=== PATIENT | female | born 1970 | race Caucasian/White ===

== ENCOUNTER → 2016-06-02 | Outpatient (CLI) | payer OTHER ==
--- NOTE | 2016-06-02 10:27 | US ---
EXAM DESCRIPTION: MAMMO BREAST DIAGNOSTIC BILATERAL; US BREAST BILATERAL Images were reviewed with R2 computer-aided detection. CLINICAL HISTORY: Left breast tenderness with bilateral breast nodules COMPARISON: 2014. FINDINGS: Scattered glandular contour with nodularity and the increased mammographic density. Right breast 8 o'clock. Partially obscured nodule corresponds to palpable change. No mammographic abnormality is shown on the left. No architectural distortion or clustered microcalcifications. Directed ultrasound examination outer right breast demonstrates 7 o'clock palpable nodule to correspond to a 2.7 cm simple cyst. Scattered small cysts are seen throughout the outer right breast without sonographically suspicious finding. Tender region left breast 3 o'clock corresponds to a benign appearing intramammary lymph node. No sonographic abnormality. IMPRESSION: Benign exam. Palpable region corresponds to a large simple cyst in this patient with scattered fibrocystic changes. There is no mammographic or sonographic evidence for malignancy. BIRAD CATEGORY: 2 BENIGN RECOMMENDATION: FOLLOW-UP: Routine annual mammography. Mastodynia recommendations were given. Findings and recommendations were communicated to the patient by the technologist. According to the [employer], yearly mammograms are recommended starting at age 40 and continuing as long as a woman is in good health. Any breast change noted on a breast self-exam should be reported promptly to the patient's healthcare provider. Breast MRI is recommended for women with an approximately 20-25% or greater lifetime risk of breast cancer, including women with a strong family history of breast or ovarian cancer and women who have been treated for Hodgkin's disease. Electronically signed by: Re Collazo 06/02/2016 10:25
== END | disposition home or self-care (01) ==
LOC: MAMMO 08:00
DX: N63 Unspecified lump in breast (principal)

== ENCOUNTER → 2016-10-25 | Outpatient (CLI) | payer SELFPAY | END | disposition home or self-care (01) | LOC: LAB.O 11:46 | PROVIDERS: ATTEND Surgery | DX: N60.01 Solitary cyst of right breast (principal) ==

== ENCOUNTER → 2017-12-25 | Outpatient (CLI) | payer BC ==
--- NOTE | 2017-12-26 09:11 | MAM ---
EXAM DESCRIPTION: 3D Screening BILATERAL : Digital Mammography. CLINICAL HISTORY: 47 years Female SCREEN . "Lumps in both breasts." Multiple cysts. No personal history of breast cancer. Remote family history of breast cancer. Childbirth. Postmenopausal. HRT 5 or more years ago. Bilateral breast cyst aspirations. Bilateral breast reduction. Lifetime risk of developing breast cancer (Tyrer-Cuzick model) is 14.9 %. COMPARISON: 2-D digital diagnostic bilateral mammography 06/02/2016. TECHNIQUE: Bilateral CC and MLO projection full-field images, Digital tomosynthesis mammographic technique. Bilateral digital 2-D full-field MLO images. CAD not utilized. FINDINGS: The breast parenchymal density pattern is: Heterogeneously dense breast tissue, which may obscure small masses. No skin thickening or nipple retraction. Bilateral solitary microcalcifications. Bilateral axillary lymph nodes. Bilateral regions of focal asymmetry stable since the prior study. Again seen is architectural distortion related to prior bilateral breast reduction. Slightly more benign type calcifications bilaterally compared to the prior study. No new focal, stellate mass or density, focal asymmetry , and no suspicious microcalcifications bilaterally. IMPRESSION: Benign exam. BIRAD CATEGORY: 2 BENIGN FINDINGS. RECOMMENDATIONS: FOLLOW UP: Routine digital bilateral screening, one year interval from December 2017. Written communication explaining the IMPRESSION and follow-up, will be mailed to the patient and referring health care provider. According to the [employer], yearly mammograms are recommended starting at age 40 and continuing as long as a woman is in good health. Any breast change noted on a breast self-exam should be reported promptly to the patient's healthcare provider. Breast MRI is recommended for women with an approximately 20-25% or greater lifetime risk of breast cancer, including women with a strong family history of breast or ovarian cancer and women who have been treated for Hodgkin's disease. A negative mammographic report should not delay tissue diagnosis in patients with significant clinical history or physical findings. Extremely dense breast tissue limits the sensitivity of digital mammography. Electronically signed by: Prasanna Hamilton MD 12/26/2017 9:10 AM CDT
== END ==
LOC: MAMMO 10:28
PROVIDERS: ATTEND Nurse Practitioner Family
DX: Z12.31 Encounter for screening mammogram for malignant neoplasm of breast (principal)

== ENCOUNTER 2018-04-04 07:40 | Emergency (ER) | payer BC ==
[2018-04-04] MEDS ORDERED: KETOROLAC TROMETHAMINE INJ 30 MG/ML VIAL IM ONE (07:56)
[2018-04-04] MEDS ORDERED: HYDROcodone 10MG/APAP 325MG 1 EA TAB PO ONE (07:56)
--- NOTE | 2018-04-04 08:19 | RAD ---
One view abdomen. Indication: suspected r kidney stone Comparison: None. Impression: Cholecystectomy clips. Bowel gas pattern nonspecific. No abnormal calcifications. CT could better evaluate for renal stones as clinically indicated. No acute osseous abnormality. Electronically signed by: Scott Jung MD 04/04/2018 8:18 AM [employer]
--- NOTE | 2018-04-04 09:39 | CT ---
EXAM DESCRIPTION: Abdomen/Pelvis w/o Contrast: Computed Tomography. CLINICAL HISTORY: 48 years Female right flank pain 3 days COMPARISON: None. TECHNIQUE: Spiral-axial scans 2.5 x 2.5 mm intervals through the abdomen and pelvis without oral or IV contrast. Coronal and sagittal 2.0 mm reconstructions. Total Exam DLP: 996.18 mGy-cm. This exam was performed according to our departmental CT dose-optimization program which includes automated exposure control, adjustment of the mA and/or kV according to patient size and/or use of iterative reconstruction technique; to reduce radiation dose to as low as reasonably achievable (ALARA). FINDINGS: Lung bases and pleura: Minimal posterior dependent atelectasis in the lower lobes more on the left than the right. Liver, stomach, spleen, and adrenal glands: Long axis of the right hepatic lobe is 18.1 cm. Question of a slightly more dissection of the liver on the posterior right upper lobe subcapsular which is most likely fatty sparing of the right lobe. Smooth capsule with no dilated ducts or ascites. Stomach is negative. Other solid organs are unremarkable. Pancreas, Gallbladder, and Ducts: Surgical clips in the gallbladder fossa with no fluid. Common bile duct and pancreas are negative. Kidneys and Ureters: 2 mm radiodense stone in the upper collecting system of the right kidney with no hydronephrosis or perinephric edema. Left kidney is unremarkable. Bilateral ureters are normal caliber with no radiodense stones dilation or periureteral edema. Mesentery: No stranding, fascial thickening, free air or free fluid. Aorta: Unremarkable. Small Bowel: Negative. Terminal Ileum/Cecum: Unremarkable. Appendix not seen. Normal fatty density. Colon: Fecal matter from the cecum to the proximal descending colon. No complications. Pelvic Organs: No radiodense stones in the urinary bladder. Vaginal cuff negative. No fluid in the cul-de-sac. Ovaries not well seen in the adnexa. Spine and Bony Pelvis: Mild levoscoliosis lumbar spine. Bilateral hypertrophy of the superior lateral acetabular facet margins. Abdominal Wall/Back Soft Tissues: Anterior midline bulge of the abdominal wall raising the at the umbilicus but no hernia or bowel involved in the abdominal wall. IMPRESSION: 1. 2 mm nonobstructing stone in the upper collecting system of the right kidney with no hydronephrosis. Left kidney and bilateral ureters are unremarkable. No radiodense stones in the urinary bladder. 2. Mild hepatomegaly. Differences in density in the right lobe are most likely related to steatosis, mixed with normal hepatic parenchyma. Consider follow-up hepatic ultrasound on a nonemergent basis. Normal ducts. No ascites. 3. Appearance of the bilateral superior lateral acetabular margins can be associated with over coverage of the femoral heads and pincer-type femoral acetabular impingement. Correlate for hip pain. Electronically signed by: Prasanna Hamilton MD 04/04/2018 9:38 AM [facility]
[2018-04-04] MEDS ORDERED: MORPHINE SULFATE INJ 10 MG/ML VIAL IM ONE (10:11)
[2018-04-04] MEDS ORDERED: predniSONE 20 MG TAB PO ONE (10:45)
[2018-04-04] MEDS ORDERED: diazePAM 2 MG TAB PO ONE (10:45)
--- NOTE | 2018-04-04 12:47 | US ---
Procedure: US LIVER Exam Date: 04/04/2018 Ordering Provider: Darrian Soni Clinical Indication: flank pain, abnormality on ct Comparison: 04/04/2018 CT abdomen pelvis Technique: Real-time ultrasonography was obtained over the right upper quadrant and medical billing representative images were recorded. Findings: The liver is echogenic consistent with fatty infiltration. Liver is enlarged measuring up to 16.7 cm. There is a 4.0 x 3.9 x 3.1 cm avascular hypoechoic mass in the right hepatic lobe. The extrahepatic common duct measures 6 mm. No intrahepatic or extrahepatic biliary dilation. The gallbladder has been removed. No abdominal aortic aneurysm. The pancreas is unremarkable. The IVC is unremarkable. No hydronephrosis in the right kidney. No ascites in the abdomen. Impression: 1. Avascular mass in the right hepatic lobe. Further evaluation with MRI liver protocol is recommended. Electronically signed by: Hugo Harris MD 04/04/2018 12:46 PM [facility]
--- NOTE | 2018-04-04 13:07 | ED.PDOC ---
History of Present Illness - General Chief Complaint: Problem Stated Complaint: right flank pain Time Seen by Provider: 04/04/18 07:48 Source: patient Exam Limitations: no limitations - History of Present Illness Initial Comments: the patient's 48-year-old female presenting to the emergency room secondary to lower back pain primarily on the right side that started about 3 days ago. It has been fairly constant in nature with acute exacerbations. When the pain has been at its worstshe has had some nausea. No urinary symptoms. No constipation. No vomiting. She has already had both her appendix and her gallbladder out. No fever. No weight loss. She did fall about a week to 10 days ago. On exam the patient has tenderness to palpation over the paraspinal musculature adjacent to approximately L3-L5 on the right. No pain over the spinous processes and no pain on the left. Timing/Duration: unsure Severity: moderate Improving Factors: nothing Worsening Factors: movement Associated Symptoms: denies symptoms Allergies/Adverse Reactions: Allergies Butorphanol [From Stadol] Allergy (Verified 03/03/16 12:34) adhesives Adverse Reaction (Uncoded 03/03/16 12:34) Home Medications: Ambulatory Orders Duloxetine HCl [Cymbalta] 60 mg PO DAILY 10/08/14 Buspirone HCl 10 mg .ROUTE DAILY 04/04/18 Cyclobenzaprine HCl [Flexeril] 10 mg PO TID PRN #30 tab 04/04/18 Methotrexate Sodium [Methotrexate] 15 mg PO 04/04/18 predniSONE [Prednisone] 20 mg PO DAILY #5 tab 04/04/18 Review of Systems - Review of Systems Constitutional: States: no symptoms reported EENTM: States: no symptoms reported Respiratory: States: no symptoms reported Cardiology: States: no symptoms reported Gastrointestinal/Abdominal: States: nausea Genitourinary: States: no symptoms reported Musculoskeletal: States: back pain Skin: States: no symptoms reported Neurological: States: no symptoms reported Endocrine: States: no symptoms reported All other Systems: No Change from Baseline Past Medical History (General) - Patient Medical History Hx Seizures: No Hx Stroke: No Hx Asthma: No Hx of COPD: No Hx Cardiac Disorders: Yes - palpitations Hx Congestive Heart Failure: No Hx Pacemaker: No Hx Hypertension: No Hx Diabetes: No Hx Cancer: No Hx MRSA: No Surgical History: appendectomy, cholecystectomy, tonsillectomy, Hysterectomy, other - Vaccination History Hx Tetanus, Diphtheria Vaccination: Yes Hx Influenza Vaccination: No Hx Pneumococcal Vaccination: No - Social History Hx Tobacco Use: No Hx Alcohol Use: No Hx Substance Use: No Hx Physical Abuse: No Hx Emotional Abuse: No - Female History Patient : No Family Medical History - Family History Father Family History: No Known Living Status: Still Living Hx Family Diabetes: Yes Hx Family;Other: Hep C Alzheimers Mother Living Status: Still Living Hx Family Diabetes: Yes Hx Family;Other: Hep C, pancreatitis Physical Exam - Physical Exam General Appearance: Alert, Other - obviously hurting Eye Exam: bilateral normal Ears, Nose, Throat: hearing grossly normal, normal ENT inspection, normal pharynx Neck: non-tender, full range of motion, supple Respiratory: lungs clear, normal breath sounds, no respiratory distress, no accessory muscle use Cardiovascular/Chest: normal peripheral pulses, regular rate, rhythm, no edema Peripheral Pulses: radial,right: 2+, radial,left: 2+, dorsalis pedis,right: 2+, dorsalis pedis,left: 2+ Gastrointestinal/Abdominal: non tender, soft Rectal Exam: deferred Back Exam: no vertebral tenderness, muscle spasm - see history of present illness Extremity: normal range of motion, non-tender, normal inspection, no pedal edema, normal capillary refill 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, alert, normal mood/affect, oriented x 3 Skin Exam: normal color Comments: Vital Signs - 24 hr 04/04/18 04/04/18 04/04/18 07:50 08:30 09:00 Temperature 98.1 F Pulse Rate [ 88 76 79 left brachial] Respiratory 22 20 20 Rate Blood Pressure 127/75 121/74 [left brachial] O2 Sat by Pulse 98 97 97 Oximetry 04/04/18 04/04/18 04/04/18 10:00 11:00 11:30 Temperature Pulse Rate [ 78 61 63 left brachial] Respiratory 20 16 16 Rate Blood Pressure 128/78 128/76 120/53 [left brachial] O2 Sat by Pulse 96 94 L 95 Oximetry 04/04/18 12:30 Temperature Pulse Rate [ 61 left brachial] Respiratory 16 Rate Blood Pressure 105/73 [left brachial] O2 Sat by Pulse 95 Oximetry Progress - Progress Progress: 04/04/18 13:10 the patient is a 48-year-old female presenting with lower right back pain that appears to be musculoskeletal in nature. Laboratory work was reassuring. The patient does have a 4 cm liver lesion that she will need to have continued workup on as an outpatient in the form of a MRI per liver protocol. I do not believe that it is the source of her back pain today. For the back pain the patient is going to be placed on Flexeril 3 times daily as needed to help reduce muscle spasm and she will also be placed on prednisone 20 mg daily for the next 5 days. she needs to keep herself well-hydrated. Topical heat and stretching may prove beneficial. Follow-up with primary care doctor early next week to get the MRI set up. ER warnings were given. - Results/Orders Results/Orders: Laboratory Results - last 24 hr 04/04/18 04/04/18 04/04/18 07:58 08:53 08:53 WBC 6.0 RBC 4.72 Hgb 13.4 Hct 40.3 MCV 85.4 MCH 28.4 MCHC 33.2 RDW 13.8 Plt Count 300 MPV 7.9 Absolute Neuts (auto) 3.90 Absolute Lymphs (auto) 1.40 Absolute Monos (auto) 0.50 Absolute Eos (auto) 0.10 Absolute Basos (auto) 0.00 Neutrophils % 64.9 Lymphocytes % 23.6 Monocytes % 8.6 Eosinophils % 2.1 Basophils % 0.8 Sodium 141 Potassium 4.0 Chloride 107 Carbon Dioxide 26 Anion Gap 12.0 BUN 14 Creatinine 0.80 BUN/Creatinine Ratio 17.5 Random Glucose 104 Serum Osmolality 282.0 Calcium 9.3 Total Bilirubin 0.4 AST 21 ALT 19 Alkaline Phosphatase 81 Serum Total Protein 6.7 Albumin 3.7 Globulin 3.0 Albumin/Globulin Ratio 1.2 Urine Color Yellow Urine Appearance Clear Urine pH 5.5 Ur Specific [place] 1.020 Urine Protein Negative Urine Glucose (UA) Negative Urine Ketones Negative Urine Blood Negative Urine Nitrite Negative Urine Bilirubin Negative Urine Urobilinogen 0.2 Ur Leukocyte Esterase Negative Urine RBC 0 Urine WBC 1-3 Ur Epithelial Cells 5-10 Urine Bacteria Rare KUB shows no acute pathology. CT of abdomen and pelvis without contrast shows a 2 mm stone within the right kidney. No evidence of hydroureter or hydronephrosis.posterior right lobe of liver abnormality. Liver ultrasound shows a 4 cm hypoechoic liver lesion and recommends MRI. Departure - Departure Clinical Impression: Liver mass, right lobe Acute myofascial strain of lumbar region Qualifiers: Encounter type: initial encounter Qualified Code(s): S39.012A - Strain of muscle, fascia and tendon of lower back, initial encounter Disposition: Discharge to Home or Self Care Condition: Fair Departure Forms: ED Discharge - Pt. Copy, Patient Portal Self Enrollment Instructions: Low Back Pain (DC) Diet: regular diet Activity: increase activity as tolerated Referrals: Milla Mack NP [Primary Care Provider] - 1-2 Days Prescriptions: Cyclobenzaprine HCl [Flexeril] 10 mg PO TID PRN #30 tab PRN Reason: Muscle Spasms predniSONE [Prednisone] 20 mg PO DAILY #5 tab Home Medications: Ambulatory Orders Duloxetine HCl [Cymbalta] 60 mg PO DAILY 10/08/14 Buspirone HCl 10 mg .ROUTE DAILY 04/04/18 Cyclobenzaprine HCl [Flexeril] 10 mg PO TID PRN #30 tab 04/04/18 Methotrexate Sodium [Methotrexate] 15 mg PO 04/04/18 predniSONE [Prednisone] 20 mg PO DAILY #5 tab 04/04/18 Additional Instructions: the patient is a 48-year-old female presenting with lower right back pain that appears to be musculoskeletal in nature. Laboratory work was reassuring. The patient does have a 4 cm liver lesion that she will need to have continued workup on as an outpatient in the form of a MRI per liver protocol. I do not believe that it is the source of her back pain today. For the back pain the patient is going to be placed on Flexeril 3 times daily as needed to help reduce muscle spasm and she will also be placed on prednisone 20 mg daily for the next 5 days. she needs to keep herself well-hydrated. Topical heat and stretching may prove beneficial. Follow-up with primary care doctor early next week to get the MRI set up. ER warnings were given.
[2018-04-04 13:31] VITALS: BP 116/76; TEMP 97.7; O2SAT 96
== END 2018-04-04 13:32 | disposition home or self-care (01) ==
LOC: ER 07:40
DX: S39.012A Strain of muscle, fascia and tendon of lower back, initial encounter (principal); R16.0 Hepatomegaly, not elsewhere classified; R11.0 Nausea; N20.0 Calculus of kidney; Z90.49 Acquired absence of other specified parts of digestive tract; Z79.899 Other long term (current) drug therapy; Z88.8 Allergy status to other drugs, medicaments and biological substances; W19.XXXA Unspecified fall, initial encounter; Y92.9 Unspecified place or not applicable
CPT/HCPCS: 36415; 74018; 74176; 76705; 80053; 81001; 85025; J1885; J2270; J7512

== ENCOUNTER 2018-05-04 08:17 | Observation (INO) | payer BC ==
[2018-05-04] MEDS ORDERED: MORPHINE SULFATE INJ 10 MG/ML VIAL IV ONE ×2 (08:41→09:57)
[2018-05-04] MEDS ORDERED: ONDANSETRON INJ 4 MG/2 ML VIAL IV ONE (08:42)
--- NOTE | 2018-05-04 08:48 | ED.PDOC ---
History of Present Illness - General Chief Complaint: Abdominal Pain Stated Complaint: abdominal pain Time Seen by Provider: 05/04/18 08:39 Information Source: patient Exam Limitations: no limitations Additional Information: THIS PATIENT STARTED WITH RUQ PAIN THIS AM. SHE RATES THE PAIN 7/10 AND RADIATES TO THE BACK AND VOICES THAT IT REMINDS HER OF A GALLBLADDER ATTACK. SHE HAD HERS REMOVED MANY YEARS AGO. SHE ALSO TELLS ME THAT LAST MONTH SHE WAS HERE FOR WHAT APPEARED TO BE A RENAL COLIC BUT A CT OF THE ABDOMEN WAS NEGATIVE CALCULOUS. THERE WAS AN INCIDENTAL FINDING OF A LIVER LESION. AN MRI WAS SCHEDULED FOR THIS PAST MONDAY BUT NEEDS TO RESCHEDULE. SHE WAS TREATED A MUSCLE STRAIN AND DISCHARGED. THIS PAIN, TODAY IS DEFERENT THAN THE ONE IN MARCH. - History of Present Illness Abdominal Pain Onset Location: RUQ Pain Radiation: flank, back Quality: moderate Timing/Duration: 1-3 hours Worsening Factors: nothing Associated Symptoms: denies symptoms Review of Systems - Review of Systems Constitutional: States: no symptoms reported EENTM: States: no symptoms reported Respiratory: States: no symptoms reported Cardiology: States: no symptoms reported Gastrointestinal/Abdominal: States: abdominal pain, nausea Genitourinary: States: no symptoms reported Musculoskeletal: States: no symptoms reported Skin: States: no symptoms reported Neurological: States: no symptoms reported Endocrine: States: no symptoms reported Hematologic/Lymphatic: States: no symptoms reported Past Medical History (General) - Patient Medical History Hx Seizures: No Hx Stroke: No Hx Asthma: No Hx of COPD: No Hx Cardiac Disorders: Yes - palpitations Hx Congestive Heart Failure: No Hx Pacemaker: No Hx Hypertension: No Hx Diabetes: No Hx Cancer: No Hx MRSA: No Surgical History: appendectomy, cholecystectomy, tonsillectomy, Hysterectomy, other - Vaccination History Hx Tetanus, Diphtheria Vaccination: Yes Hx Influenza Vaccination: No Hx Pneumococcal Vaccination: No - Social History Hx Tobacco Use: No Hx Alcohol Use: No Hx Substance Use: No Hx Physical Abuse: No Hx Emotional Abuse: No - Female History Patient : No Family Medical History - Family History Father Family History: No Known Living Status: Still Living Hx Family Diabetes: Yes Hx Family;Other: Hep C Alzheimers Mother Living Status: Still Living Hx Family Diabetes: Yes Hx Family;Other: Hep C, pancreatitis Physical Exam - Physical Exam General Appearance: Alert, Other - SHE SEEMS TO BE IN MODERATE DISTRESS. Eyes, Ears, Nose, Throat Exam: PERRL/EOMI, normal ENT inspection Neck: non-tender Respiratory: chest non-tender, lungs clear, normal breath sounds, no respiratory distress, no accessory muscle use Cardiovascular/Chest: normal peripheral pulses, regular rate, rhythm, no edema Peripheral Pulses: No deficit Gastrointestinal/Abdominal: normal bowel sounds, tenderness - ON PALPATION TO THE RUQ Rectal Exam: deferred Extremity: normal range of motion Neurologic: no motor/sensory deficits, alert, normal mood/affect, oriented x 3 Skin Exam: normal color Progress - Progress Progress: 05/04/18 15:59 DISCUSSED CASE WITH MS. WHALEN AND WILL ADMIT. IF POSSIBLE FATOUMATA PERFORM MRI OF THE ABDOMEN AND MRCP. - Results/Orders Results/Orders: 05/04/18 11:00 EKG STAT Laboratory Results WBC 6.3 K/mm3 (4.8-10.8) 05/04/18 09:09 RBC 4.94 M/mm3 (4.20-5.40) 05/04/18 09:09 Hgb 14.1 gm/dL (12.0-16.0) 05/04/18 09:09 Hct 42.6 % (36.0-47.0) 05/04/18 09:09 MCV 86.3 fl (81.0-99.0) 05/04/18 09:09 MCH 28.4 pg (27.0-31.0) 05/04/18 09:09 MCHC 33.0 g/dL (33.0-37.0) 05/04/18 09:09 RDW 14.3 % (11.5-14.5) 05/04/18 09:09 Plt Count 358 K/mm3 (130-400) 05/04/18 09:09 MPV 7.7 fl (7.40-10.4) 05/04/18 09:09 Absolute Neuts (auto) 4.10 K/uL (1.8-6.8) 05/04/18 09:09 Absolute Lymphs (auto) 1.60 K/uL (1.0-3.4) 05/04/18 09:09 Absolute Monos (auto) 0.40 K/uL (0.2-0.8) 05/04/18 09:09 Absolute Eos (auto) 0.10 K/uL (0.0-0.4) 05/04/18 09:09 Absolute Basos (auto) 0.10 K/uL (0.0-0.1) 05/04/18 09:09 Neutrophils % 65.3 % (42.0-78.0) 05/04/18 09:09 Lymphocytes % 25.3 % (20.0-50.0) 05/04/18 09:09 Monocytes % 6.7 % (2.0-9.0) 05/04/18 09:09 Eosinophils % 1.7 % (1.0-5.0) 05/04/18 09:09 Basophils % 1.0 % (0.0-2.0) 05/04/18 09:09 Sodium 136 mmol/L (135-145) 05/04/18 09:09 Potassium 3.8 mmol/L (3.6-5.0) 05/04/18 09:09 Chloride 101 mmol/L (101-111) 05/04/18 09:09 Carbon Dioxide 27 mmol/L (21-31) 05/04/18 09:09 Anion Gap 11.8 (12-18) L 05/04/18 09:09 BUN 12 mg/dL (7-18) 05/04/18 09:09 Creatinine 0.75 mg/dL (0.6-1.3) 05/04/18 09:09 BUN/Creatinine Ratio 16.0 (10-20) 05/04/18 09:09 Random Glucose 88 mg/dL (70-105) 05/04/18 09:09 Serum Osmolality 271.1 mOsm/L (275-295) L 05/04/18 09:09 Calcium 9.3 mg/dL (8.4-10.2) 05/04/18 09:09 Total Bilirubin 0.2 mg/dL (0.2-1.0) 05/04/18 09:09 AST 19 IU/L (10-42) 05/04/18 09:09 ALT 23 IU/L (10-60) 05/04/18 09:09 Alkaline Phosphatase 89 IU/L (42-121) 05/04/18 09:09 Creatine Kinase 45 IU/L (26-140) 05/04/18 14:00 CK-MB (CK-2) 0.7 ng/mL (0.0-4.4) 05/04/18 14:00 CK-MB (CK-2) % Not Reportable 05/04/18 14:00 Troponin I < 0.02 ng/mL (0.01-0.05) 05/04/18 14:00 Serum Total Protein 7.7 gm/dL (6.4-8.2) 05/04/18 09:09 Albumin 4.2 g/dl (3.2-5.5) 05/04/18 09:09 Globulin 3.5 gm/dL (2.3-3.5) 05/04/18 09:09 Albumin/Globulin Ratio 1.2 (1.1-1.9) 05/04/18 09:09 Amylase 67 U/L (28-100) 05/04/18 09:09 Lipase 33 U/L (22-51) 05/04/18 09:09 Urine Color Yellow (Yellow) 05/04/18 09:20 Urine Appearance Sl cloudy (Clear) 05/04/18 09:20 Urine pH 6.0 (4.5-7.8) 05/04/18 09:20 Ur Specific [place] 1.025 (1.005-1.030) 05/04/18 09:20 Urine Protein Negative mg/dL 05/04/18 09:20 Urine Glucose (UA) Negative mg/dL (Negative) 05/04/18 09:20 Urine Ketones Negative mg/dL (NEGATIVE) 05/04/18 09:20 Urine Blood Negative (Negative) 05/04/18 09:20 Urine Nitrite Negative 05/04/18 09:20 Urine Bilirubin Negative (NEGATIVE) 05/04/18 09:20 Urine Urobilinogen 0.2 mg/dL (0.2-1.0) 05/04/18 09:20 Ur Leukocyte Esterase Negative (Negative) 05/04/18 09:20 Urine RBC 0 /hpf 05/04/18 09:20 Urine WBC 1-3 /hpf 05/04/18 09:20 Ur Epithelial Cells 3-5 /hpf 05/04/18 09:20 Urine Bacteria Rare 05/04/18 09:20 Urine Mucus Small 05/04/18 09:20 Departure - Departure Clinical Impression: Abdominal pain Qualifiers: Abdominal location: right upper quadrant Qualified Code(s): R10.11 - Right upper quadrant pain Time of Disposition: 15:58 Disposition: Admit Patient Condition: Good Home Medications: Ambulatory Orders Duloxetine HCl [Cymbalta] 60 mg PO DAILY 10/08/14 Buspirone HCl 10 mg PO BID 04/04/18 Cyclobenzaprine HCl [Flexeril] 10 mg PO TID PRN #30 tab 04/04/18 Methotrexate Sodium [Methotrexate] 15 mg PO WKLY 04/04/18 Folic Acid 1 mg PO DAILY 05/04/18 Meloxicam 15 mg PO DAILY 05/04/18 Decision To Admit - Decistion To Admit Decision to Admit Date: 05/04/18 Decision to Admit Time: 15:58
--- NOTE | 2018-05-04 09:03 | RAD ---
EXAM DESCRIPTION: Abdomen Series CLINICAL HISTORY: ruq pain COMPARISON: January 17, 2006 FINDINGS: AP supine and upright views of the abdomen show a nonspecific, nonobstructive bowel gas pattern with no evidence for free intraperitoneal air. Surgical clips from cholecystectomy are seen. No air-filled dilated loops of small bowel are seen. No significant air-fluid levels are identified. No obvious organomegaly is seen. No abnormal calcifications are seen in the expected location of the renal collecting systems. Single view of the chest shows cardiac silhouette and pulmonary vasculature to be within normal limits. Lungs are normally aerated and clear IMPRESSION: Nonspecific abdominal series Electronically signed by: Ross Thayer MD 05/04/2018 9:02 AM [employer] CONSULTANT
[2018-05-04] MEDS ORDERED: ALUM & MAG HYDROX-SIMETHICONE 30 ML, LIDOCAINE VISCOUS 2% 15 ML PO ONE ×2 (10:50)
[2018-05-04] MEDS ORDERED: LIDOCAINE HCL 2% (MOUTH-THROAT) 15 ML UD ONE (10:53)
[2018-05-04] MEDS ORDERED: ALUM & MAG HYDROX-SIMETHICONE 30 ML UD ONE (10:53)
[2018-05-04] MEDS ORDERED: PANTOPRAZOLE INJECTION 40 MG in SODIUM CHLORIDE 0.9% 100ML 100 ML IVPB ONE (11:04)
[2018-05-04] MEDS ORDERED: PANTOPRAZOLE SODIUM IV 40 MG VIAL ONE ×2 (11:27→19:41)
[2018-05-04] MEDS ORDERED: SODIUM CHLORIDE 0.9% 100ML 100 ML IVPB ONE (11:27)
--- NOTE | 2018-05-04 11:35 | HP ---
SUPERVISING PHYSICIAN: Wilbur Obrien MD CHIEF COMPLAINT: Abdominal pain. HISTORY OF PRESENT ILLNESS: This is a 48 year-old female who has had some right upper quadrant abdominal pain as well as some epigastric to midsternal pain. She rated as 7/10. Her epigastric substernal pain radiates straight through to her back and the right upper quadrant pain goes straight through to her back as well. She had been in the Emergency Room about a month ago and they thought she had renal colic. CT of the abdomen was negative for renal stone but there was an incidental finding of a liver lesion. She also had a liver ultrasound done and it showed avascular mass in the right hepatic lobe, further evaluation with MRI protocol is recommended. An MRI was scheduled for 04/30/17. The patient was unable to make her appointment due to issues with her health savings account. In the Emergency Room she was given several doses of morphine and they helped some. Her vital signs were stable with a temperature of 98/1, heart rate 88, blood pressure 127/75, respiratory rate 20, 02 saturated 98%. Lab was done and her CBC was basically within normal limits. Her electrolytes were basically within normal limits. Her liver enzymes were within normal limits. Troponin was less than 0.02. She had a repeat cardiac enzymes 3 hours later and they were also negative. Her urinalysis was negative for urinary tract infection. An abdominal x-ray was done showing a nonspecific abdominal series. Chest x-ray, single-view, was done and shows cardiac silhouette and pulmonary vasculature to be within normal limits. Lungs are normally aerated and clear. She was also given some Protonix in the Emergency Room as well as some Zofran. She received Mylanta as well and I was called for hospital admission. PAST MEDICAL HISTORY: 1. Rheumatoid arthritis. 2. Gastroesophageal reflux disease. 3. Irritable bowel syndrome, presently on no medication. 4. Bladder problems due to bladder suspension surgery as well as removal of the mass. PAST SURGICAL HISTORY: 1. Bladder suspension surgery as well as reversal. 2. Hysterectomy. 3. Appendectomy. 4. Cholecystectomy. 5. Umbilical hernia repair. 6. Breast reduction surgery. 7. Multiple laparoscopic procedures to check for abdominal cysts. 8. Two eye surgeries. 9. . 10. D&C. 11. Implantation of a TENS unit trial on the bladder. CURRENT MEDICATIONS: Per the EMR and awaiting verification. ALLERGIES: Butorphanol and adhesives. FAMILY HISTORY: SOCIAL HISTORY: She lives in [place]. She denies any tobacco, ETOH or illicit drug use. REVIEW OF SYSTEMS: GENERAL: Denies fever and fatigue and weight changes. HEENT: Negative for sinus symptoms, ear pain, vision changes or sore throat. . RESPIRATORY: Negative for coughing, wheezing, shortness of breath. CARDIAC: Positive for midsternal epigastric chest pain that radiated through to the back. Negative for palpitations or tachycardia. GI: Positive for right upper quadrant abdominal pain that radiates through the back. Also positive for nausea, negative for vomiting, diarrhea, or constipation. GENITOURINARY: Negative for hematuria, polyuria, dysuria. MUSCULOSKELETAL: Positive for chronic back pain as well as joint pain. SKIN: Negative for lesions or rashes. NEUROLOGICAL: Positive for migraine headaches that she takes Excedrin for. Negative for seizures or dizziness. PHYSICAL EXAMINATION: VITAL SIGNS: Temperature 97.6, heart rate 62, blood pressure 127/83, respiratory rate 20, 02 saturation 98% on room air. GENERAL: This is a 48 year-old female who is lying in her hospital bed. She is in no acute distress. HEENT: Normocephalic and atraumatic. Pupils are equal and reactive. Oropharynx is clear. NECK: Supple without mass. CHEST: Essential clear to auscultation bilaterally. Chest has equal rise and fall with inspiration and expiration. CARDIOVASCULAR: Regular rate and rhythm. ABDOMEN: Soft, there is tenderness to palpation on the epigastric area as well as the right upper quadrant. She has some mild right CVA tenderness. There is no rebound tenderness or guarding. Bowel sounds are positive. EXTREMITIES: No cyanosis, clubbing, or edema. NEUROLOGIC: She is awake, alert and oriented x3. Cranial nerves II through XII are grossly intact. Skin is warm and dry. RECTAL: Deferred. Labs and films are as per the history of present illness. ASSESSMENT: 1. Chest pain, rule out IN. 2. Gastritis. 3. History of gastroesophageal reflux disease. 4. History of MAURI. 5. Rheumatoid arthritis. 6. Irritable bowel syndrome, presently on no medications. PLAN: We will place the patient in observation. I have initiated the chest pain guidelines and we will monitor those cardiac enzymes as they become available. Her presenting symptoms seem to be gastritis. I spoke with Dr. Brayan Boswell as well as Dr. Vaughn Sotelo, hospice care sales consultant, about her symptoms. They agreed that she had some gastritis-like symptoms. Dr. Sotelo felt like she needed to have an EGD. She has had GERD for many years. He recommended that he see her early next week. She has an appointment with him on 05/08/18 at 9:45 AM. We have faxed her abdominal CT scan results. her sonogram results and a KUB x-ray as well as her insurance information. I have also a DVD for the patient to take to Dr. Sotelo of the aforementioned radiology reports. I have restarted her home medications and she usually takes her Methotrexate on Tuesdays but she recently got her prescription so she is to start taking that today. I have not continued her Meloxicam due to the gastritis. I spoke with her food expeditor, Dr. Luna Alaniz in [place] and she felt that the patient had been on Methotrexate long enough Mobic could be discontinued. I have given her Tramadol for pain. I have also given her one dose of hydrocodone for her headache, put her on Carafate as well as Protonix b.i.d. She will be on a clear liquid diet with some fluids overnight. I also ordered Lovenox for DVT prophylaxis. She should be discharged tomorrow with close followup with her primary care physician, PATEL Monterroso, and she has the appointment with Dr. Sotelo on 05/08/18. We will send her home on Carafate and Protonix. She is not to take her Mobic after discharge. She also may need some Tramadol for pain. Otherwise, we will continue to monitor her closely and follow as needed. Dr. Obrien is the collaborating physician available for consultation. #[id number] [facility]
[2018-05-04] MEDS ORDERED: SODIUM CHLORIDE 0.9% (FLUSH) 10 ML SYG IV PRN (12:47)
[2018-05-04] MEDS ORDERED: CYCLOBENZAPRINE HCL 10 MG TAB PO PRN (12:58)
[2018-05-04] MEDS ORDERED: IV SET AND CAP CHANGE INJ INJ SCH (13:00)
[2018-05-04] MEDS ORDERED: ACETAMINOPHEN 325 MG TAB PO PRN (15:19)
[2018-05-04] MEDS ORDERED: NITROGLYCERIN 0.4 MG 25 EA TAB SL PRN (15:19)
[2018-05-04] MEDS ORDERED: HYDROcodone 7.5MG/APAP 325MG 1 EA TAB PO ONE (16:00)
[2018-05-04] MEDS: SUCRALFATE 1 GM TAB PO SCH ×2 (16:00→21:00)
[2018-05-04] MEDS ORDERED: KCL 20 MEQ/NS 1,000 ML IVS ONE (16:21)
[2018-05-04] MEDS: traMADol HCL 50 MG TAB PO PRN (19:21)
[2018-05-04] MEDS ORDERED: ENOXAPARIN SODIUM 40 MG/0.4 ML SYG SUBCU SCH (21:00)
[2018-05-04] MEDS: TEMAZEPAM 15 MG CAP PO PRN ×2 (21:00→21:07)
[2018-05-04] MEDS: busPIRone HCL 5 MG TAB PO SCH (21:00)
[2018-05-05] MEDS: PANTOPRAZOLE SODIUM IV 40 MG VIAL IV SCH ×2 (06:11→09:10)
[2018-05-05] MEDS: traMADol HCL 50 MG TAB PO PRN (06:23)
[2018-05-05] MEDS: SUCRALFATE 1 GM TAB PO SCH (06:29)
[2018-05-05] MEDS ORDERED: PANTOPRAZOLE SODIUM IV 40 MG VIAL IV SCH ×2 (06:30)
[2018-05-05] MEDS ORDERED: DULoxetine HCL 30 MG CAP PO SCH (09:00)
[2018-05-05] MEDS ORDERED: SODIUM CHLORIDE 0.9% (FLUSH) 10 ML SYG IV SCH (09:00)
[2018-05-05] MEDS: busPIRone HCL 5 MG TAB PO SCH (09:08)
[2018-05-05 10:17] VITALS: BP 126/85; TEMP 98; O2SAT 93
[2018-05-11] MEDS ORDERED: METHOTREXATE SODIUM 15 MG PO SCH (09:00)
== END 2018-05-05 10:45 | disposition home or self-care (01) ==
LOC: ER 08:17 → MS 11:32
PROVIDERS: ADMIT Nurse Practitioner Acute Care; ATTEND Nurse Practitioner Family
DX: K29.70 Gastritis, unspecified, without bleeding (principal); R07.2 Precordial pain; K21.9 Gastro-esophageal reflux disease without esophagitis; F41.1 Generalized anxiety disorder; M06.9 Rheumatoid arthritis, unspecified; K58.9 Irritable bowel syndrome, unspecified; G89.29 Other chronic pain; Z79.1 Long term (current) use of non-steroidal anti-inflammatories (NSAID); Z79.899 Other long term (current) drug therapy; Z88.6 Allergy status to analgesic agent; Z91.048 Other nonmedicinal substance allergy status; Z90.49 Acquired absence of other specified parts of digestive tract
CPT/HCPCS: 96366 ×2; 96365; 96375; 96376 ×2; 96372; J2270 ×2; J2405; J1650; J3480; J7050; 82553 ×2; 80053 ×2; 80061; 36415 ×4; 82150; 81001; 85025 ×2; 82550 ×2; 83690; 84484 ×3; 74019; 94760 ×2; 99285; 93005 ×4

== ENCOUNTER 2018-07-25 05:19 | Day surgery (SDC) | payer BC ==
[2018-07-25] MEDS ORDERED: PROPOFOL 200 MG/20 ML VIAL IV ONE (07:00)
[2018-07-25] MEDS ORDERED: LACTATED RINGERS 1,000 ML ONE (07:38)
--- NOTE | 2018-07-25 11:28 | OP ---
DATE OF PROCEDURE: 07/25/18 PREPROCEDURE DIAGNOSIS: 1. Colorectal cancer screening. POSTPROCEDURE DIAGNOSIS: 1. Internal hemorrhoids. 2. Inverted appendix. PROCEDURE: 1. Colonoscopy. SURGEON: Vaughn Hernandez MD COMPLICATIONS: No immediate complications. SEDATION: The patient was sedated via IV propofol by the Anesthesia Department. CONSENT: Prior to the procedure, risks, benefits and alternatives to the therapy were discussed with the patient. The risks included bleeding, infection, perforation and . The patient agreed to the procedure and signed a consent. PREPROCEDURE ANESTHESIA ASSESSMENT: An examination revealed no contraindication to sedation. Airway examination demonstrated a Mallampati class type 2, ASA grade assessment type 2. Throughout the procedure, the patient's blood pressure and additional vital signs were closely monitored. PROCEDURE: The patient was placed in the left lateral decubitus position and a rectal examination was performed. The rectal examination was normal. The Olympus colonoscope was passed in the anus all the way to the terminal ileum. The scope was retracted and the mucosa was visualized. The entirety of the exam was performed under direct visualization. Retroflexion was performed in the rectum. Preparation quality was excellent. The withdrawal time was greater than 6 minutes. The patient tolerated the procedure well. FINDINGS: 1. Non-bleeding, medium to large sized internal hemorrhoids were found on retroflexion. 2. An inverted appendix was found in the cecum. No evident mucosal abnormalities surrounding the appendix or within the appendix were visualized under direct white light visualization NBI. 3. Normal terminal ileum. 4. The remainder of the examination was entirely normal. RECOMMENDATION: 1. Return the patient home. 2. Resume previous diet favoring high-fiber foods. 3. Resume using Citrucel at least twice a day. 4. Continue prior medications as previously recommended. 5. Return to my office in the next 2 weeks. 6. Findings were discussed with the patient and family members. 7. Repeat colonoscopy in the next 10 years for screening purposes. 8. Primary care physician may check FIT/Cologuard in the next 3 to 5 years. #[id number] [facility]
[2018-07-25 12:15] VITALS: BP 134/81; TEMP 96.7; O2SAT 97
== END 2018-07-25 12:00 | disposition home or self-care (01) ==
LOC: AMB 05:19
PROVIDERS: ATTEND Internal Medicine Gastroenterology
DX: R15.9 Full incontinence of feces (principal); K64.8 Other hemorrhoids; K38.8 Other specified diseases of appendix; Z88.8 Allergy status to other drugs, medicaments and biological substances; Z79.899 Other long term (current) drug therapy
CPT/HCPCS: 00811; 45378; J3490; J7120

== ENCOUNTER 2018-12-28 09:02 | Emergency (ER) | payer BC ==
[2018-12-28] MEDS ORDERED: KETOROLAC TROMETHAMINE INJ 30 MG/ML VIAL IV ONE (09:15)
[2018-12-28] MEDS ORDERED: SODIUM CHLORIDE 0.9% (FLUSH) 10 ML SYG IV PRN (09:15)
--- NOTE | 2018-12-28 09:20 | ED.PDOC ---
History of Present Illness - General Chief Complaint: Abdominal Pain Stated Complaint: Low abdominal discomfort Time Seen by Provider: 12/28/18 09:08 - History of Present Illness Initial Comments: patient is a 48 y.o. F w/ pmh of RA on Ninfa who presents to the ED c/o lower abd pain. Reports she woke from her sleep this AM with lower abd pain radiating to her b/l flanks. Sharp in nature, 8/10 in severity. Associated with nausea. no aggravating or alleviating factors. Also notes that she has a generalized rash for the past couple of days that is itchy. Review of Systems - Review of Systems Constitutional: States: no symptoms reported EENTM: States: no symptoms reported Respiratory: States: no symptoms reported Gastrointestinal/Abdominal: States: abdominal pain. Denies: diarrhea, vomiting Genitourinary: Denies: dysuria, frequency Musculoskeletal: States: no symptoms reported Skin: States: rash. Denies: change in color Neurological: States: no symptoms reported Endocrine: States: no symptoms reported Hematologic/Lymphatic: States: no symptoms reported All other Systems: Reviewed and Negative Past Medical History (General) - Patient Medical History Hx Seizures: No Hx Stroke: No Hx Asthma: No Hx of COPD: No Hx Cardiac Disorders: Yes - palpitations Hx Congestive Heart Failure: No Hx Pacemaker: No Hx Hypertension: No Hx Diabetes: No Hx Cancer: No Hx MRSA: No Surgical History: appendectomy, cholecystectomy, tonsillectomy, Hysterectomy, other - Vaccination History Hx Tetanus, Diphtheria Vaccination: Yes Hx Influenza Vaccination: Yes - 2018 Hx Pneumococcal Vaccination: No - Social History Hx Tobacco Use: No Hx Alcohol Use: No Hx Substance Use: No Hx Physical Abuse: No Hx Emotional Abuse: No - Female History Patient : No Family Medical History - Family History Father Family History: No Known Living Status: Still Living Hx Family Diabetes: Yes Hx Family;Other: Hep C Alzheimers Mother Living Status: Still Living Hx Family Diabetes: Yes Hx Family;Other: Hep C, pancreatitis Physical Exam - Physical Exam General Appearance: Alert, Comfortable Eyes, Ears, Nose, Throat Exam: PERRL/EOMI Neck: non-tender, supple Respiratory: chest non-tender, lungs clear Cardiovascular/Chest: normal peripheral pulses, no edema Peripheral Pulses: No deficit, 2+ Gastrointestinal/Abdominal: normal bowel sounds, tenderness - b/l lower abd tenderness Rectal Exam: deferred Back Exam: normal inspection Extremity: normal range of motion, non-tender Neurologic: alert, oriented x 3 Skin Exam: rash - generalized maculopapular rash. no oropharyngeal involvement Progress - Progress Progress: 12/28/18 09:22 MDM: Patient w/ pmh of RA on Ninfa here with acute onset lower abd pain. Plan for labs, CT, treat symptoms, reassess. Also notes pruritic generalized rash. suspect reaction to the Ninfa which was started 3 weeks ago. - Results/Orders Results/Orders: IMPRESSION: 1. Posterior right lobe subcapsular low-density hepatic mass with persistent peripheral nodular enhancement 4.0 x 3.2 x 3.2 cm. Size is unchanged from previous imaging March 2018 and in enhancement pattern visualized on this phase of contrast is most consistent with hepatic hemangioma. Follow-up examination in 6-12 months with multiphase enhancement of the liver to confirm the complete enhancement pattern of a hepatic hemangioma recommended. 2. Prior cholecystectomy and hysterectomy and possibly appendectomy. 3. Small benign right renal cyst with previous tiny stone upper pole right kidney not visualized. 4. No bowel obstruction or other abnormalities noted. Acute inflammatory changes not apparent Electronically signed by: Hamzah Santiago MD 12/28/2018 10:43 AM CDT Departure - Departure Clinical Impression: Acute UTI Disposition: Discharge to Home or Self Care Condition: Good Departure Forms: ED Discharge - Pt. Copy, Patient Portal Self Enrollment Instructions: DI for Abdominal Pain-Adult, Urinary Tract Infections in Adults Referrals: Milla Mack NP [Primary Care Provider] - 1-2 Weeks Prescriptions: Acetaminophen W/ Codeine [Tylenol W/ CODEINE #3] 1 ea PO Q6H PRN #15 PRN Reason: Pain Cephalexin Monohydrate [Keflex] 500 mg PO BID 7 Days #14 cap Phenazopyridine HCl [Pyridium] 200 mg PO TID #6 tab Home Medications: Ambulatory Orders Duloxetine HCl [Cymbalta] 60 mg PO DAILY 10/08/14 Buspirone HCl 10 mg PO BID 04/04/18 Methotrexate Sodium [Methotrexate] 15 mg PO WKLY 04/04/18 Folic Acid 1 mg PO DAILY 05/04/18 Acetaminophen W/ Codeine [Tylenol W/ CODEINE #3] 1 ea PO Q6H PRN #15 12/28/18 Cephalexin Monohydrate [Keflex] 500 mg PO BID 7 Days #14 cap 12/28/18 Phenazopyridine HCl [Pyridium] 200 mg PO TID #6 tab 12/28/18 Additional Instructions: Please return to the ER if your pain does not improve, or worsens at any time
--- NOTE | 2018-12-28 10:45 | CT ---
EXAM DESCRIPTION: CT ABDOMEN AND PELVIS WITH CONTRAST CLINICAL HISTORY: pain COMPARISON: April 04, 2018 TECHNIQUE: CT of the abdomen and pelvis are performed during IV bolus administration of nonionic contrast. Oral contrast media was not administered. This exam was performed according to our departmental dose-optimization program, which includes automated exposure control, adjustment of the mA and/or kV according to patient size and/or use of iterative reconstruction technique. FINDINGS: The lung bases are clear without infiltrate or effusion or mass. The liver is upper normal in size with mild diffuse fatty infiltration. Posteriorly subcapsular in the right lobe of the liver just above the upper pole of the kidney is a peripheral nodular enhancing low-density mass measuring 4.0 x 3.2 x 3.2 cm in size. Almost certainly this corresponds to the sonographic and hypodense CT abnormality previously seen on noncontrast imaging. On the single phase of enhancement obtained and the appearance is typical for a hepatic hemangioma but the sonographic hypodense appearance is somewhat atypical and likely related to the echogenic fatty infiltrated liver. No interval enlargement noted. Nine months of stability in size is evident. In an additional 6-12 months a multiphase hepatic CT with arterial venous and serial delayed imaging of the posterior right lobe to confirm this has the more complete typical enhancement pattern of a hepatic hemangioma. Additional lesions within the liver are not apparent. The gallbladder is surgically absent with normal ductal system. Normal-appearing spleen and pancreas and adrenal glands are noted. The kidneys intensely enhance with a 1 cm benign cyst upper pole right kidney anteriorly noted. Small upper pole calculus previously seen on noncontrast imaging is not visualized on today's study. The aorta and vena cava is unremarkable. No abdominal or pelvic ascites is noted. Large and small bowel caliber is normal with normal appearance of the ileocecal valve. The appendix is not clearly identified but no inflammatory changes noted. Significant diverticulosis or bowel obstruction or ileus is not apparent. Within the pelvis the uterus is surgically absent and no adnexal masses or fluid collections noted. The vaginal cuff appears normal. The anterior abdominal wall and the inguinal regions are normal. Bony spine is normally aligned without destructive process or compression deformity. No pelvic abnormalities noted. IMPRESSION: 1. Posterior right lobe subcapsular low-density hepatic mass with persistent peripheral nodular enhancement 4.0 x 3.2 x 3.2 cm. Size is unchanged from previous imaging March 2018 and in enhancement pattern visualized on this phase of contrast is most consistent with hepatic hemangioma. Follow-up examination in 6-12 months with multiphase enhancement of the liver to confirm the complete enhancement pattern of a hepatic hemangioma recommended. 2. Prior cholecystectomy and hysterectomy and possibly appendectomy. 3. Small benign right renal cyst with previous tiny stone upper pole right kidney not visualized. 4. No bowel obstruction or other abnormalities noted. Acute inflammatory changes not apparent Electronically signed by: Hamzah Santiago MD 12/28/2018 10:43 AM CDT
[2018-12-28] MEDS ORDERED: HYDROcodone 5MG/APAP 325MG 1 EA TAB PO ONE (11:03)
[2018-12-28] MEDS ORDERED: PHENAZOPYRIDINE HCL 200 MG TAB PO ONE (11:04)
[2018-12-28 11:23] VITALS: BP 125/80; TEMP 98; O2SAT 98
== END 2018-12-28 11:27 | disposition home or self-care (01) ==
LOC: ER 09:02
DX: N39.0 Urinary tract infection, site not specified (principal); R21 Rash and other nonspecific skin eruption; M06.9 Rheumatoid arthritis, unspecified; Z79.899 Other long term (current) drug therapy; Z90.49 Acquired absence of other specified parts of digestive tract
CPT/HCPCS: 74177; 80048; 80076; 81001; 83690; 85025; 87086; J1885

== ENCOUNTER 2019-03-15 13:00 | Emergency (ER) | payer BC ==
[2019-03-15] MEDS ORDERED: SODIUM CHLORIDE 0.9% 1000ML 1,000 ML IVS ONE ×2 (13:26→15:07)
[2019-03-15] MEDS ORDERED: DEXAMETHASONE INJ 10 MG/ML VIAL IV ONE (13:27)
[2019-03-15] MEDS ORDERED: METOCLOPRAMIDE HCL INJ 10 MG/2 ML VIAL IV ONE (13:27)
[2019-03-15] MEDS ORDERED: diphenhydrAMINE HCL 50 MG/ML VIAL IV ONE (13:32)
--- NOTE | 2019-03-15 13:32 | ED.PDOC ---
History of Present Illness - General Chief Complaint: Headache Stated Complaint: R sided headache, R ear pain Time Seen by Provider: 03/15/19 13:25 Additional Information: Patient with chief complaint of right-sided headache for 4 days. Patient has a history of migraines and indicates that her headache today is similar to her typical migraine headache but is a bit worse and today and it is on the right side whereas her migraines typically are on the left side. The headache extends from her right forehead to the right occiput. Patient describes the headache as throbbing and is an 8-9/10. Patient has had nausea and vomiting for the past several days associated with a headache and this is causing her to have an upset stomach with a sense of burning. Patient indicates that she does not take specific migraine medications such as Imitrex because she does not like the way it feels and she prefers to take Excedrin. Patient took Excedrin today but it did not improve her symptoms. - History of Present Illness Allergies/Adverse Reactions: Allergies Butorphanol [From Stadol] Allergy (Severe, Verified 03/15/19 13:27) Anaphylaxis adhesives Adverse Reaction (Uncoded 03/15/19 13:27) Rash Home Medications: Ambulatory Orders Duloxetine HCl [Cymbalta] 60 mg PO DAILY 10/08/14 Buspirone HCl 10 mg PO BID 04/04/18 Methotrexate Sodium [Methotrexate] 15 mg PO WKLY 04/04/18 Folic Acid 1 mg PO DAILY 05/04/18 Acetaminophen W/ Codeine [Tylenol W/ CODEINE #3] 1 ea PO Q6H PRN #15 12/28/18 Cephalexin Monohydrate [Keflex] 500 mg PO BID 7 Days #14 cap 12/28/18 Phenazopyridine HCl [Pyridium] 200 mg PO TID #6 tab 12/28/18 Vbicwrudgyswx-Pfoq-Qvneyddppx [Fioricet] 1 tab PO Q4H PRN #20 tab 03/15/19 Review of Systems - Review of Systems Constitutional: Denies: chills, fever EENTM: States: no symptoms reported Respiratory: States: no symptoms reported. Denies: cough, short of breath Cardiology: States: no symptoms reported. Denies: chest pain, palpitations Gastrointestinal/Abdominal: States: vomiting Genitourinary: States: no symptoms reported. Denies: dysuria Musculoskeletal: States: no symptoms reported Skin: States: no symptoms reported Neurological: Denies: numbness, paresthesia, tingling, weakness All other Systems: Reviewed and Negative Past Medical History (General) - Patient Medical History Hx Seizures: No Hx Stroke: No Hx Asthma: No Hx of COPD: No Hx Cardiac Disorders: No Hx Congestive Heart Failure: No Hx Pacemaker: No Hx Hypertension: No Hx Diabetes: No Hx Cancer: No Hx MRSA: No Surgical History: appendectomy, cholecystectomy, Hysterectomy - Vaccination History Hx Tetanus, Diphtheria Vaccination: No Hx Influenza Vaccination: No Hx Pneumococcal Vaccination: No - Social History Hx Tobacco Use: No Hx Alcohol Use: No Hx Substance Use: No Hx Substance Use Treatment: No Hx Depression: No Hx Physical Abuse: No Hx Emotional Abuse: No - Female History Patient is a Female of Child Bearing Age (10 -59 yrs old): Yes Patient : No - Hysterectomy Family Medical History - Family History Father Family History: No Known Living Status: Still Living Hx Family Diabetes: Yes Hx Family;Other: Hep C Alzheimers Mother Family History: Unknown Living Status: Still Living Hx Family Diabetes: Yes Hx Family;Other: Hep C, pancreatitis Physical Exam - Physical Exam General Appearance: Alert, Well Developed, Well Nourished, Other - uncomfortable Eyes, Ears, Nose, Throat Exam: normal ENT inspection, TMs normal, pharynx normal Neck: non-tender, full range of motion, supple, normal inspection, trachea midline Cardiovascular/Chest: normal peripheral pulses, regular rate, rhythm, no edema Respiratory: chest non-tender, lungs clear, normal breath sounds, no respiratory distress, no accessory muscle use Gastrointestinal/Abdominal: normal bowel sounds, non tender, soft, no organomegaly Back Exam: normal inspection, no CVA tenderness Extremity: normal range of motion, non-tender, normal inspection Mental Status: alert, oriented x 3 Motor/Sensory: no motor deficit, no sensory deficit Skin Exam: warm/dry, normal color Progress - Progress Progress: 03/15/19 15:59 Patient reassessed and is feeling much better at this time status post IV fluids and headache cocktail of medication. She is up and about to the restroom and her nausea has subsided. Patient's labs are unremarkable and clinically I believe her vomiting is from her migraine. Patient has never tried Fioricet and I will discharge with this medication and she will follow up with her PCP. Vital signs stable, patient NAD and looks clinically well, and I believe is safe for discharge with outpatient follow-up. Follow-up instructions, discharge instructions and return to ED precautions discussed with patient. Patient voices understanding and willingness to comply with instructions. All laboratory results have been discussed with the patient, and all questions answered. Patient is happy with plan. - Results/Orders Results/Orders: 03/15/19 15:07 Sodium Chloride 0.9% 1000ML [Ns 1000 ml] 1,000 ml IVS ONCE Laboratory Results - last 24 hr 03/15/19 03/15/19 15:04 15:40 WBC 8.9 RBC 4.86 Hgb 14.5 Hct 44.0 MCV 90.5 MCH 29.8 MCHC 32.9 L RDW 14.9 H Plt Count 375 MPV 8.2 Absolute Neuts (auto) 6.40 Absolute Lymphs (auto) 1.80 Absolute Monos (auto) 0.60 Absolute Eos (auto) 0.10 Absolute Basos (auto) 0.00 Neutrophils % 71.9 Lymphocytes % 20.7 Monocytes % 6.4 Eosinophils % 0.7 L Basophils % 0.3 Sodium 141 Potassium 3.7 Chloride 104 Carbon Dioxide 25 Anion Gap 15.7 BUN 21 H Creatinine 0.82 BUN/Creatinine Ratio 25.6 H Random Glucose 83 Serum Osmolality 283.4 Calcium 9.6 Total Bilirubin 0.5 AST 25 ALT 36 Alkaline Phosphatase 72 Serum Total Protein 7.8 Albumin 4.4 Globulin 3.4 Albumin/Globulin Ratio 1.3 Departure - Departure Clinical Impression: Headache Qualifiers: Headache chronicity pattern: acute headache Intractability: not intractable Time of Disposition: 16:02 Disposition: Discharge to Home or Self Care Condition: Good Departure Forms: ED Discharge - Pt. Copy, Patient Portal Self Enrollment Instructions: DI for Headache Referrals: Milla Mack NP [Primary Care Provider] - 1 Week Prescriptions: Rnyfuccrechhy-Kliw-Gxytwpnicb [Fioricet] 1 tab PO Q4H PRN #20 tab PRN Reason: Headache/Migraine Pain Home Medications: Ambulatory Orders Duloxetine HCl [Cymbalta] 60 mg PO DAILY 10/08/14 Buspirone HCl 10 mg PO BID 04/04/18 Methotrexate Sodium [Methotrexate] 15 mg PO WKLY 04/04/18 Folic Acid 1 mg PO DAILY 05/04/18 Acetaminophen W/ Codeine [Tylenol W/ CODEINE #3] 1 ea PO Q6H PRN #15 12/28/18 Cephalexin Monohydrate [Keflex] 500 mg PO BID 7 Days #14 cap 12/28/18 Phenazopyridine HCl [Pyridium] 200 mg PO TID #6 tab 12/28/18 Sjjbroraflcea-Csxj-Hqsarlvgpd [Fioricet] 1 tab PO Q4H PRN #20 tab 03/15/19
[2019-03-15] MEDS ORDERED: KETOROLAC TROMETHAMINE INJ 30 MG/ML VIAL IV ONE (14:55)
[2019-03-15 15:10] VITALS: O2SAT 98
[2019-03-15 16:03] VITALS: BP 129/84; TEMP 97.7
== END 2019-03-15 16:12 | disposition home or self-care (01) ==
LOC: ER 13:00
DX: R51 Headache (principal); R11.2 Nausea with vomiting, unspecified; Z79.899 Other long term (current) drug therapy; Z88.8 Allergy status to other drugs, medicaments and biological substances
CPT/HCPCS: 36415; 80053; 85025; J1100; J1200; J1885; J2765; J7030

== ENCOUNTER → 2019-06-07 | Outpatient (CLI) | payer BC ==
--- NOTE | 2019-06-08 13:00 | RAD ---
EXAM DESCRIPTION: Ribs,Left 3 Views CLINICAL HISTORY: CHEST WALL PAIN COMPARISON: None FINDINGS: 3 views of the left ribs. No displaced rib fracture or rib lesion is present. The lungs are well-expanded and clear. The heart and mediastinum are normal in appearance. Right upper quadrant surgical clips. IMPRESSION: Normal Electronically signed by: Efra Sorensen MD 06/08/2019 12:58 PM [employer]
== END ==
LOC: RAD 11:14
PROVIDERS: ATTEND Nurse Practitioner Family
DX: R07.89 Other chest pain (principal)

== ENCOUNTER → 2019-08-28 | Outpatient (CLI) | payer BC | LOC: LAB.O 12:48 | PROVIDERS: ATTEND Internal Medicine | DX: M06.9 Rheumatoid arthritis, unspecified (principal) ==

== ENCOUNTER → 2020-01-13 | Outpatient (CLI) | payer OTHER ==
--- NOTE | 2020-01-13 17:00 | CT ---
EXAM DESCRIPTION: Head CLINICAL HISTORY: HEADACHE COMPARISON: 31 Aug 2015 TECHNIQUE: Non contrast cranial CT.This exam was performed according to our departmental dose-optimization program, which includes automated exposure control, adjustment of the mA and/or kV according to patient size and/or use of iterative reconstruction technique. FINDINGS: Ventricles and sulci are unremarkable. There is no hemorrhage or mass. There are no white matter abnormalities detected. The calvarium is unremarkable. The visualized paranasal sinuses and the mastoids are clear. IMPRESSION: Normal CT head Electronically signed by: Rolf Posey MD 01/13/2020 4:58 PM CDT
== END ==
LOC: CT 12:53
PROVIDERS: ATTEND Nurse Practitioner Family
DX: R51 Headache (principal)

== ENCOUNTER → 2020-03-03 | Outpatient (CLI) | payer OTHER | LOC: LAB.O 15:12 | PROVIDERS: ATTEND Nurse Practitioner | DX: M06.9 Rheumatoid arthritis, unspecified (principal); Z79.899 Other long term (current) drug therapy ==